=== PATIENT | female | born 1945 | race Asian ===

== ENCOUNTER 2018-09-26 20:20 | Emergency (ER) | payer BC ==
[~2018-09-26] VITALS: Ht 152.4 cm; Wt 52.3 kg
[2018-09-26 20:35] VITALS: BP 111/49
[2018-09-26] MEDS ORDERED: htn med (21:06)
[2018-09-27] MEDS ORDERED: BACITRACIN ZINC OINT 500U/GM, 0.9 GM ONE (16:38)
== END 2018-09-26 21:34 | disposition home or self-care (01) ==
LOC: ED 21:30
DX: S93.401A Sprain of unspecified ligament of right ankle, initial encounter (principal); X50.1XXA Overexertion from prolonged static or awkward postures, initial encounter; Y93.89 Activity, other specified; Y92.59 Other trade areas as the place of occurrence of the external cause; Y99.8 Other external cause status
CPT/HCPCS: 99283